=== PATIENT | female | born 1980 | race Asian ===

== ENCOUNTER → 2017-03-23 11:40 | Outpatient (CLI) | payer BC ==
[2015-06-17 10:28] VITALS: BMI 26.8
[~2017-03-23 11:40] MED LIST: HYDROCODON-ACE1 EAC7 PO; IBUPROFEN600 MG PO; PERCOCET 5-3251 TAB PO; PRENATAL COMPLE1 TAB PO
[2017-03-23 12:45] LABS: COLOR YELLOW (YELLOW)
[2017-03-23 12:47] LABS: APPEARANCE HAZY (CLEAR); BILIRUBIN NEGATIVE (NEGATIVE); GLUCOSE NEGATIVE (NEGATIVE); KETONE SMALL mg/dL (NEGATIVE); NITRITE NEGATIVE (NEGATIVE); PROTEIN NEGATIVE (NEGATIVE); RED CELLS - URINE 25-50 /hpf (0-5); SPECIFIC GRAVITY 1.015 (1.005-1.020); UROBILINOGEN NORMAL (NORMAL)
[2017-03-23 12:48] LABS: BACTERIA MODERATE /hpf (NONE SEEN); MUCUS <1+ /lpf (NONE SEEN)
[2017-03-23 12:50] LABS: YEAST OCC /hpf (NONE SEEN)
== END | disposition home or self-care (01) ==
LOC: D.LDO 11:40
PROVIDERS: Obstetrics & Gynecology
DX: Z34.03 Encounter for supervision of normal first pregnancy, third trimester (principal); Z3A.38 38 weeks gestation of pregnancy

== ENCOUNTER 2017-03-24 02:59 | Inpatient (IN) | payer BC ==
[~2017-03-24] VITALS: Ht 147.3 cm; Wt 54.9 kg
--- NOTE | ~2017-03-24 | OP ---
PATIENT NAME: LEVY PLEITEZ MEDICAL RECORD: [id number] :82 LOCATION:[facility]73 ADMISSION DATE:03/24/17 SURGEON: RUBEN BEST MD DATE OF OPERATION: 03/24/2017 PREOPERATIVE DIAGNOSIS: Arrest of descent in the second stage. POSTOPERATIVE DIAGNOSES: Arrest of descent in the second stage. PROCEDURE: Primary low transverse section. SURGEON: Ruben Best MD ANESTHESIA: Regional via epidural. ESTIMATED BLOOD LOSS: 1000 cc. INTRAVENOUS FLUIDS: Per anesthesia record. SPECIMENS: Placenta and cord for gases. FINDINGS: 1. Viable male infant, Apgars 9 at 1 and 9 at 5. 2. Placenta delivered manually intact, 3-vessel cord noted. 3. Grossly normal appearing adnexa bilaterally. 4. Left uterine artery transection. COMPLICATIONS: None apparent. DESCRIPTION OF PROCEDURE: The patient was taken to the operating room where regional anesthesia was achieved without difficulty. The patient was then prepped and draped in normal sterile fashion in the dorsal supine position. A Mckinney catheter had been placed and SCDs were on and functioning normally. At this point, a Pfannenstiel skin incision was made and extended downward to the underlying subcutaneous fat to the level of the fascia. The fascia was then excised in the midline using the scalpel and excised bilaterally using the Jaime scissors. The superior and inferior aspects of the fascial incision were then grasped with Steven clamps times 2, tented upward, and sharply dissected from the underlying rectus muscle using the Jaime scissors and the Bovie cautery. Rectus muscles were bluntly in the midline. The midline raphae of the pyramidalis muscle was then excised using the Metzenbaum scissors. Peritoneum was entered sharply at the superior aspect of the incision and the peritoneal incision extended using the Metzenbaum scissors. At this point, the bladder blade was placed into the pelvis. A bladder flap was created by excising the anterior leaf of the broad ligament across the lower uterine segment. A limited bladder flap was created due to the high position of the vaginal/bladder investment. A low transverse incision was made in the uterus and extended superiorly and inferiorly using the Pelosi method. The head was delivered from the pelvis atraumatically and the body delivered atraumatically as well. was bulb suctioned upon delivery. Cord was clamped times 2, cut, and the was handed to the awaiting nursery team. Cord was obtained for gases. The placenta was then removed manually intact, 3-vessel cord was noted. Uterine tone was moderate. The patient was given IM Methergine with massage, creating good uterine tone prior to closure. The left uterine artery was found to be bleeding and two [place] stitches were placed inferiorly. There was good OPERATIVE REPORT [id number] LEVY PLEITEZ visualization into the posterior cul-de-sac during placement. The uterine incision was then repaired with 0 Vicryl in a running locked fashion times 2 with good hemostasis noted. Several areas were oversewn on the lower uterine segment. Posterior cul-de-sac was then thoroughly irrigated and uterus replaced into the pelvis. The anterior cul-de-sac was then thoroughly irrigated. FloSeal was placed onto the bladder-uterine juncture. Counts were then correct times 2 for instruments, sponges, and needles. The fascia was repaired with 0 loop PDS times 1. The skin was repaired with 3-0 Monocryl in a running subcutaneous fashion and then covered with Dermabond. The patient tolerated the procedure well and transferred to postanesthesia recovery stable without incident. TRANSINT:[id number] Voice Confirmation ID: [id number] DOCUMENT ID: [id number] RUBEN BEST MD at 0653 CC: [id number] DICTATION DATE: 03/24/17 1627 [employer]: 03/24/17 1659 DIS IN 03/27/17 [facility] [address] [id number]
[~2017-03-24 02:59] MED LIST changes: -HYDROCODON-ACE1 EAC7 PO
[2017-03-24 03:30] LABS: APPEARANCE HAZY (CLEAR); BILIRUBIN NEGATIVE (NEGATIVE); COLOR YELLOW (YELLOW); GLUCOSE NEGATIVE (NEGATIVE); KETONE SMALL mg/dL (NEGATIVE); NITRITE NEGATIVE (NEGATIVE); PROTEIN TRACE mg/dL (NEGATIVE); SPECIFIC GRAVITY 1.015 (1.005-1.020); UROBILINOGEN NORMAL (NORMAL)
[2017-03-24 03:33] LABS: BACTERIA MODERATE /hpf (NONE SEEN); EPITHELIAL CELLS 0-5 /hpf (0-5); MUCUS <1+ /lpf (NONE SEEN)
[2017-03-24 04:48] LABS: HEMATOCRIT 41.4 % (36.0-48.0); HEMOGLOBIN 14.2 g/dL (12-16); MCH 34.4 pg (26.0-34.0); MCHC 34.3 g/dL (31.0-37.0); MCV 100.2 fL (80.0-100.0); MEAN PLATELET VOLUME 10.6 fL (7.4-10.4); RBC 4.13 10x6/uL (4.00-5.40); RDW 13.5 % (11.5-14.5); WBC 6.5 10x3/uL (4.8-10.8)
[2017-03-24 04:52] VITALS: BP 110/76; Ht 147.3 cm; Wt 54.9 kg
[2017-03-24 17:03] VITALS: BP 121/80
[2017-03-24 20:00] VITALS: BP 103/65
[2017-03-25 00:38] VITALS: BP 104/69
[2017-03-25 04:43] VITALS: BP 100/65
[2017-03-25 06:12] LABS: RAPID PLASMA REAGIN Non Reactive (Non Reactive)
[2017-03-25 06:22] LABS: BASOPHILS 0 % (0-2); EOSINOPHILS 0 % (0-7); IMMATURE GRANULOCYTES 0.3 % (0-5); LYMPHOCYTES 6.5 % (15-50); MCH 33.8 pg (26.0-34.0); MCV 99.4 fL (80.0-100.0); MEAN PLATELET VOLUME 9.6 fL (7.4-10.4); MONOCYTES 5.8 % (2-11); NEUTROPHILS 87.4 % (40-80); RDW 13.8 % (11.5-14.5)
[2017-03-25 06:29] LABS: HEMATOCRIT 31.2 % (36.0-48.0); HEMOGLOBIN 10.6 g/dL (12-16); PLATELET COUNT 129 10x3/uL (130-400); RBC 3.14 10x6/uL (4.00-5.40); WBC 13.6 10x3/uL (4.8-10.8)
[2017-03-25 08:00] VITALS: BP 105/65
[2017-03-25 10:59] LABS: BASOPHILS 0 % (0-2); EOSINOPHILS 0 % (0-7); HEMATOCRIT 30.8 % (36.0-48.0); HEMOGLOBIN 10.5 g/dL (12-16); IMMATURE GRANULOCYTES 0.2 % (0-5); LYMPHOCYTES 7.8 % (15-50); MCH 34.1 pg (26.0-34.0); MCHC 34.1 g/dL (31.0-37.0); MEAN PLATELET VOLUME 10.1 fL (7.4-10.4); MONOCYTES 5.9 % (2-11); NEUTROPHILS 86.1 % (40-80); PLATELET COUNT 137 10x3/uL (130-400); RBC 3.08 10x6/uL (4.00-5.40); RDW 13.8 % (11.5-14.5)
[2017-03-25 19:42] VITALS: BP 100/59
[2017-03-26 04:24] VITALS: BP 100/52
[2017-03-26 07:35] VITALS: BP 97/55
[2017-03-26 16:00] VITALS: BP 92/54
[2017-03-26 20:55] VITALS: BP 92/50
[2017-03-27 00:41] VITALS: BP 100/59
[2017-03-27 05:43] VITALS: BP 106/64
[2017-03-27 08:25] VITALS: BP 97/60
[2017-03-27] MEDS ORDERED: HYDROCODON-ACE1 EAC7 PO (13:20)
[2017-03-27] MEDS ORDERED: IBUPROFEN600 MG PO (13:21)
[2017-03-27 13:30] VITALS: BP 100/59
== END 2017-03-27 14:45 | disposition home or self-care (01) | DRG 765 ==
LOC: D.LDO 02:59 → D.LD 04:19
PROVIDERS: Obstetrics & Gynecology
PROC: 10D00Z1 Extraction of Products of Conception, Low, Open Approach (ICD-10-PCS; 2017-03-24)
PROC: 04QY0ZZ Repair Lower Artery, Open Approach (ICD-10-PCS; 2017-03-24)
PROC: 10907ZC Drainage of Amniotic Fluid, Therapeutic from Products of Conception, Via Natural or Artificial Opening (ICD-10-PCS; principal; 2017-03-24 14:30)
DX: O62.1 Secondary uterine inertia (principal); S35.53 Injury of uterine artery or vein; Z3A.38 38 weeks gestation of pregnancy; Z37.0 Single live birth; X58.XXXA Exposure to other specified factors, initial encounter

== ENCOUNTER 2017-04-02 16:56 | Emergency (ER) | payer BC ==
[2017-03-24 04:52] VITALS: BMI 25.3
[~2017-04-02 16:56] MED LIST changes: +HYDROCODON-ACE1 EAC7 PO
== END 2017-04-02 22:10 | disposition home or self-care (01) ==
LOC: D.ER 16:56
DX: R07.89 Other chest pain (principal)

== ENCOUNTER → 2018-11-02 08:53 | Outpatient (CLI) | payer BC ==
[2017-03-24 04:52] VITALS: BMI 25.3
[~2018-11-02 08:53] MED LIST changes: +HYDROCODON-ACE1 EA10 PO; +MOTRIN600 MG PO
== END | disposition home or self-care (01) ==
LOC: D.LDO 08:53
PROVIDERS: ATTEND Obstetrics & Gynecology
DX: O26.899 Other specified pregnancy related conditions, unspecified trimester (principal); Z3A.00 Weeks of gestation of pregnancy not specified

== ENCOUNTER 2018-11-09 09:02 | Inpatient (IN) | payer BC ==
[~2018-11-09] VITALS: Ht 147.3 cm; Wt 54.0 kg
[2018-11-09] VITALS (9 sets, daily range): BP systolic 107–124; BP diastolic 62–80; Ht 147.3 cm; Wt 54.0 kg
[~2018-11-09 09:02] MED LIST changes: -HYDROCODON-ACE1 EA10 PO; -MOTRIN600 MG PO
[2018-11-09 09:58] LABS: HEMATOCRIT 38.8 % (36.0-48.0); HEMOGLOBIN 13.4 g/dL (12-16); MCH 33.4 pg (26.0-34.0); MCHC 34.5 g/dL (31.0-37.0); MCV 96.8 fL (80.0-100.0); MEAN PLATELET VOLUME 10.3 fL (7.4-10.4); RBC 4.01 10x6/uL (4.00-5.40); RDW 13.2 % (11.5-14.5); WBC 6.7 10x3/uL (4.8-10.8)
[2018-11-09 16:57] LABS: BASOPHILS 0 % (0-2); EOSINOPHILS 0.1 % (0-7); HEMATOCRIT 39.6 % (36.0-48.0); HEMOGLOBIN 13.8 g/dL (12-16); IMMATURE GRANULOCYTES 0.5 % (0-5); LYMPHOCYTES 11.8 % (15-50); MCH 33.5 pg (26.0-34.0); MCHC 34.8 g/dL (31.0-37.0); MCV 96.1 fL (80.0-100.0); MEAN PLATELET VOLUME 10.1 fL (7.4-10.4); MONOCYTES 4.6 % (2-11); PLATELET COUNT 138 10x3/uL (130-400); RBC 4.12 10x6/uL (4.00-5.40); RDW 13.2 % (11.5-14.5)
[2018-11-09 17:09] LABS: WBC 12.7 10x3/uL (4.8-10.8)
[2018-11-10 00:15] VITALS: BP 102/70
[2018-11-10 04:12] VITALS: BP 95/68
[2018-11-10 06:03] LABS: BASOPHILS 0.1 % (0-2); EOSINOPHILS 0.1 % (0-7); HEMATOCRIT 34.6 % (36.0-48.0); HEMOGLOBIN 11.6 g/dL (12-16); IMMATURE GRANULOCYTES 0.3 % (0-5); LYMPHOCYTES 10.7 % (15-50); MCH 32.2 pg (26.0-34.0); MCHC 33.5 g/dL (31.0-37.0); MCV 96.1 fL (80.0-100.0); MEAN PLATELET VOLUME 10.2 fL (7.4-10.4); MONOCYTES 5.3 % (2-11); NEUTROPHILS 83.5 % (40-80); PLATELET COUNT 127 10x3/uL (130-400); RDW 13.2 % (11.5-14.5); WBC 10.7 10x3/uL (4.8-10.8)
[2018-11-10 07:14] LABS: RAPID PLASMA REAGIN Non Reactive (Non Reactive)
[2018-11-10 10:30] VITALS: BP 107/64
[2018-11-10 20:30] VITALS: BP 100/67
[2018-11-11 00:45] VITALS: BP 82/48
[2018-11-11 07:35] VITALS: BP 92/61
[2018-11-11] MEDS ORDERED: MOTRIN600 MG PO (13:57)
[2018-11-11] MEDS ORDERED: HYDROCODON-ACE1 EA10 PO (13:57)
--- NOTE | 2018-11-23 10:58 | OP ---
PATIENT NAME: LEVY PLEITEZ MEDICAL RECORD: [id number] :84 LOCATION:[facility] ADMISSION DATE:11/09/18 SURGEON: RUBEN BEST MD DATE OF OPERATION: 11/09/2018 PREOPERATIVE DIAGNOSES: 1. Term intrauterine at 37 weeks. 2. Labor. 3. History of previous section times 2. POSTOPERATIVE DIAGNOSES: 1. Term intrauterine at 37 weeks. 2. Labor. 3. History of previous section times 2. PROCEDURE: A repeat low transverse section and tubal ligation via modified Uchida procedure as well as lysis of adhesions. SURGEON: Ruben Best MD ANESTHESIA: Regional via spinal. INTRAVENOUS FLUIDS: Per anesthesia record. ESTIMATED BLOOD LOSS: 1000 cc. SPECIMENS: Placenta and cord for gases. FINDINGS: 1. Extensive adhesive disease involving the anterior abdominal wall and anterior uterus. 2. Viable infant, Apgars 9 at 1 and 9 at 5. 3. Placenta delivered manually intact, 3-vessel cord noted. 3. Normal adnexa bilaterally. PROCEDURE IN DETAIL: The patient was taken to the operating room where regional anesthesia was achieved without difficulty. The patient was then prepped and draped in normal sterile fashion in the dorsal supine position. SCDs were on and functioning normally. A Mckinney catheter had been placed and was draining freely. A Pfannenstiel skin incision was made and extended downward to the underlying subcutaneous fat to level of the fascia. The fascia was then excised in midline with scalpel and extended bilaterally using the Jaime scissors. The superior and inferior aspect of the fascial incision were then grasped with Steven clamps times 2, tented upward, and sharply dissected from the underlying rectus muscle using the Bovie cautery and the Jaime scissors. Rectus muscles were then bluntly at the top in the midline and the peritoneum was entered sharply using the Metzenbaum scissors. Very minimal clear space was noted as the uterus was densely adherent to the overlying peritoneum and posterior surface of the rectus abdominis fascia. Careful dissection was performed and the bladder was identified and using the Metzenbaum scissors until the abdominal wall was completely from the uterus. A bladder flap was created by excising the anterior leaf of the broad ligament across the lower uterine segment. A low transverse incision was made and extended via the Pelosi method. The vertex was delivered atraumatically followed by the body. The infant was bulb suctioned upon delivery. Cord was clamped times 2, cut, and OPERATIVE REPORT [id number] LEVY PLEITEZ the was handed to the awaiting nursery team. Cord was obtained for gases. The placenta was removed manually and intact, a 3-vessel cord was noted. The uterus was exteriorized, cleared of all clots and debris, and vigorously massaged. A good uterine tone was noted. Uterine incision was repaired with 0 Vicryl in a running locked fashion times 2 with good hemostasis noted. Posterior cul-de-sac was then thoroughly irrigated. Attention was then turned to the fallopian tubes in which the mid portion was grabbed with a Iveth clamp in the midline. A defect was made with the Bovie cautery and the mesosalpinx and curved Naomy clamps were placed across the midsection of the tube. This clamp section was then excised using Metzenbaum scissors and the tubal stumps were oversewn using 2-0 Vicryl times 2. Good hemostasis was noted from both tubal ligation sites and the uterus was returned to the pelvis. The anterior cul-de-sac was thoroughly irrigated and the anterior cul-de-sac found to be hemostatic. The counts were correct times 2 for needles, sponges, and instruments. The fascia was then repaired with 0 loop PDS and the skin repaired in a running subcutaneous fashion using 3-0 Monocryl and Dermabond. TRANSINT:[id number] Voice Confirmation ID: [id number] DOCUMENT ID: [id number] RUBEN BEST MD at 1058 CC: [id number] DICTATION DATE: 11/19/18 144 MEDICINE MAN: 11/19/18 175 DIS IN 11/11/18 [facility] [address] [id number]
== END 2018-11-11 16:11 | disposition home or self-care (01) | DRG 785 ==
LOC: D.LABREF 09:02 → D.LDO 09:02 → D.LD 09:34
PROVIDERS: ADMIT Obstetrics & Gynecology; ATTEND Obstetrics & Gynecology
PROC: 10D00Z1 Extraction of Products of Conception, Low, Open Approach (ICD-10-PCS; principal; 2018-11-09 11:04)
PROC: 0UB70ZZ Excision of Bilateral Fallopian Tubes, Open Approach (ICD-10-PCS; 2018-11-09 11:04)
DX: O34.211 Maternal care for low transverse scar from previous cesarean delivery (principal); Z3A.37 37 weeks gestation of pregnancy; Z37.0 Single live birth; Z30.2 Encounter for sterilization; Z30.09 Encounter for other general counseling and advice on contraception